=== PATIENT | male | born 1965 | race Caucasian/White ===

== ENCOUNTER 2017-05-22 12:16 | Emergency (ER) | payer OTHER ==
[~2017-05-22] VITALS: Ht 175.3 cm; Wt 112.5 kg
[~2017-05-22 12:16] MED LIST: ACYCLOVIR 400M400 MG PO; ACYCLOVIR800 MG PO; ASPIRIN 81MG TA81 MG PO; ASPIRIN EC81 MG PO; ATORVASTATIN CA40 MG PO; AVPAK AZITHROM250 MG PO; AZITHROMYCIN250 M1 PO; BACTRIM DS 8001 TA1 PO; BACTROBAN2% TP; BISOPROLOL FUMA10 MG PO; CARVEDILOL 1212.5 MG PO; CARVEDILOL 25MG25 MG PO; CEFDINIR 300MG300 MG PO; CLINDAMYCIN HC300 MG PO; CLOPIDOGREL75 MG PO; HCTZ/LISINOPRIL1 TA3 PO; IBU-8800 MG PO; IBU800 M1 PO; IBU800 MG PO; IBUPROFEN800 MG PO; IMDUR 30MG. TAB30 MG PO; ISOSORBIDE MONO30 MG PO; KEFLEX 500MG.500 MG PO; LEVAQUIN500 MG PO; LISINOPRIL 20MG20 MG PO; LOVENOX 10100 MG/11 SC; OMEPRAZOLE40 MG PO; PANTOPRAZOLE SO40 M1 PO; PHENERGAN 25MG.25 M1 PO; PREDNISONE 20MG20 MG PO; PREDNISONE20 MG PO; PRILOSEC OTC20 MG PO; PRILOSEC40 MG PO; PROAIR HFA0.09 MG/AC IH; SEPTRA DS 800 M1 TAB PO; SIMVASTATIN20 MG PO; TESSALON PERLE200 MG PO; TRAMADOL 50MG T50 MG PO; TRAZODONE 50MG50 MG PO; ZESTRIL20 MG PO
--- NOTE | 2017-05-22 12:36 | Urgent Treatment Center Report ---
History of Present Issue Date/Time Seen by Provider 05/22/17 1225 Visit Reason Pt arrived:Walked Presenting Problem:PT STATES LEFT KNEE PAIN X2 DAYS Location if Accident: Onset of symptoms date/time:/ or onset unknown for:MEDICAL HX UNKNOWN Have you (or family members/close friends) recently traveled outside the [place]? N If Yes, where/when: Have you had exposure to infectious disease within the past month? TB? Other? Specify: c/o left knee pain x 2 days. No known injury. Unable to localize. "Cramping all throughout my knee". Worse at night. 9/10 throbbing pain last night. Currently . Unchanged w/ aleve. Worse with extension. Denies pain w/ ambulating or walking up or down steps. 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 Mild intermittent pain then "but not much". Denies hx of knee pain or prior injury to knee. Source patient Exam Limitations no limitations ALLERGIES Coded Allergies: No Known Allergies (10/12/16) Home Medications Active Scripts Acyclovir (Acyclovir 800MG) 800 MG PO QID #20 TAB Prov: 10/12/16 Prednisone (Prednisone 20MG) 20 MG PO BID #10 TAB Prov: 12/15/16 Reported Medications LISINOPRIL/HYDROCHLOROTHIAZIDE (Lisinopril-Hctz 20-12.5 MG Tab) 1 TAB PO DAILY #30 Atorvastatin Calcium 40 MG PO QHS #30 TAB Bisoprolol Fumarate 10 MG PO DAILY #30 TAB ASPIRIN (Aspirin) 81 MG PO DAILY Omeprazole (Omeprazole 40MG) 40 MG PO DAILY Isosorbide Mononitrate (Isosorbide Mononitrate ER) 30 MG PO DAILY #30 History Medical History General CAD? No Angina: Yes IA: No Hypertension? Yes Hyperlipidemia? Yes CHF? No DVT? No PE? No COPD? No Asthma? No Anemia? No GERD? No Gastric ulcers? No GI Bleed? No Hernia? No Thyroid Problems? No Hypothyroidism? No CVA? No Seizures? No Diabetes? No Insulin Dependent: No Insulin Pump: No Home FSBS? No Renal Insuffiency? No UTI? No Stones? No BPH? No GB Disease: Yes Nephritic Syndrome? No Asplenia? No Hepatitis? No Sickle Cell Disease? No Arthritis? No Migraines? No Cataracts? No Glaucoma? No MRSA? Yes HIV? No TB? No Anxiety? No Depression? No Cancer? No More? No Immunization HX DT/Tetanus > 10 Years Ago Flu 2015- Flu Season Pneumonia Received In Past Surgical Hx Previous Surgery?Y BACK SX 1990 STAPH INFECTION S/P BACK EGD WITH DILATION Tonsils SINUS SURGERY X 2 GALLBLADDER RIGHT LEG Family History Family HX Diabetes Yes CAD Yes Hypertension Yes Hyperlipidemia No Cancer No TB No Social History Smoking Hx Smoker: Never Smoker Tobacco: No Packs/day N/A Alcohol Alcohol: No Review of Systems All Other Systems Reviewed and Negative Constitutional denies fever, denies malaise Musculoskeletal see HPI, denies back pain, denies other (denies thigh or calf pain) Skin denies lesions, denies lumps Psychiatric/Neurological denies numbness, denies tingling, denies weakness Physical Exam Vital Signs Vital Signs Date Time Temp Pulse Resp B/P Pulse O2 O2 Flow FiO2 Ox Delivery Rate 05/22 1234 20 05/22 1225 97.8 65 20 149/87 98 General Appearance normal appearance, no apparent distress Respiratory Status No: respiratory distress. Cardiovascular no peripheral edema Peripheral Pulses Pulses normal Yes (PT/DP) Back gait normal Extremities non-tender (left knee, thigh, lower leg), normal range of motion ( left hip, knee, ankle), normal inspection (left leg) Strength 5 Lower Ext (L), 5 Lower Ext (R) Neurologic alert, no motor/sensory deficits Mental status normal mood/affect Skin normal color, warm/dry Medical Decision Making LABS/Meds/Orders Pt receiving controlled substance in ED? No Results/Orders Current Medication Orders Sig/Rylan Start time Last Medication Dose Route Stop Time Status Admin Ketorolac 0 .STK-MED ONE 05/22 1231 DC Tromethamine .ROUTE Ketorolac 60 MG ONCE ONE 05/22 1230 DC 05/22 Tromethamine IM 05/22 123 1234 Orders Procedure Date/time Status KNEE-3 VIEWS-LT 05/22 1228 Active XRAY/CT/US XRAY/CT/US XRAY knee (left) XR interpretation by reviewed by me (w/ Dr. Tipton, ER ) Xray Results possibly small effusion Progress [facility] Progress Notes Date 05/22/17 Time 1307 Comment Pain improved. "It does feel better actually". Aware we are just waiting for ER MD to read xray. States + understanding. Departure Departure Time of Disposition 1319 Disposition DC Home or Self Care(routine) Clinical Impression Primary Impression: Left knee pain Qualifiers: Chronicity: acute Qualified Code: M25.562 - Pain in left knee Condition STABLE Referrals Gaby GARCÍA,Handy (Family) Follow up IMMEDIATELY for new or worsening symptoms OR no noticeable improvement over the next 3-5 days. Patient Instructions DI for Knee Pain Additional Instructions * weight bearing as tolerated * Rest * ice 15-20 mins 3-4 times a day * Tarun wrap for support and swelling unless in shower. Be sure not too tight but not too loose either * Elevate as discussed as much as possible to help reduce swelling and therefore , pain * Voltaren gel as needed for pain. * Ibuprofen, motrin, aleve, advil OR naproxen every 6 hours as needed for pain and inflammation. Do not mix and take more then one as they are all similiar medications. If you need something more, you can take tylenol every 4 hours as needed as long as your primary care provider has told you it is ok to take both. Follow up IMMEDIATELY for new or worsening symptoms OR no noticeable improvement over the next 3-5 days. Discharge Counseling Counseled pt/family regarding diagnosis, test results, medications/RX, home care, follow up needs Prescriptions Current Visit Scripts Diclofenac Sodium (Voltaren) 4 GM TP QIDP PRN knee pain #100 GM at 1314
[2017-05-22] MEDS ORDERED: VOLTAREN100 GM TP (13:10)
[2017-05-22 13:24] VITALS: BP 149/87
--- NOTE | 2017-05-22 13:45 | RADIOLOGY REPORT PS360 ---
KNEE-3 VIEWS-LT HISTORY: PAIN ORDERING PHYSICIAN: SALVADOR ADLER APRN PATIENT AGE: 51 years COMPARISON: None FINDINGS: No fracture or dislocation. No lytic or blastic change. Normal mineralization. No significant arthritic changes evident. There is a small density in the subcutaneous region superior to the patella or a foreign body. This measured 1 to 2 mm. This could be something on the patient or within the soft tissues IMPRESSION: 1. Possible small foreign body in the suprapatellar region of the subcutaneous tissues. 2. Otherwise negative left knee
== END 2017-05-22 13:24 | disposition home or self-care (01) ==
LOC: UTC 12:16
DX: M25.562 Pain in left knee (principal); Z79.899 Other long term (current) drug therapy; I10 Essential (primary) hypertension